=== PATIENT | female | born 1955 | race Two or more races ===

== ENCOUNTER → 2017-05-12 | Emergency (ER) | payer OTHER ==
[~2017-05-12] MED LIST: KETOROLAC TROMETHAMINE 60 MG/2 ML VIAL IM ONE; KETOROLAC TROMETHAMINE 60 MG/2 ML VIAL ONE
[2017-05-12 14:02] VITALS: BP 141/83; PULSE 63; TEMP 98.5; BMI 25.8
--- NOTE | 2017-05-12 14:30 | PDOC ---
History of Present Illness - General Chief Complaint: Blood Pressure Problem Stated Complaint: BLOOD PRESSURE Time Seen by Provider: 05/12/17 14:28 History Source: Patient Exam Limitations: No Limitations - History of Present Illness Initial Comments: CHIEF COMPLAINT: 61 y/o afebrile female with PMH HTN (was taken off meds 1 year ago by her doctor as they were no longer needed) c/o high blood pressure today. HISTORY OF PRESENT ILLNESS: The patient states she's been very stressed lately as her mom is in the hospital. She states for the past 5 days she's had a consistent pain in the back of her head on left side. She states this morning she took her BP at home and it was 160/105 so she came here. She denies fever, changes in vision/hearing, neck pain, n/v/d, cough, Cp, SOB, abd pain and all other symptoms. Patient has not taken anything for the pain in her head. Vital signs on arrival are within normal limits. REVIEW OF SYSTEMS: GENERAL/CONSTITUTIONAL: No fever/chills. No weakness. No weight change. +high BP at home today. HEAD, EYES, EARS, NOSE AND THROAT: No change in vision. No ear pain or discharge. No sore throat. CARDIOVASCULAR: No chest pain or shortness of breath. RESPIRATORY: No cough, wheezing, or hemoptysis. GASTROINTESTINAL: No abd pain, nausea, vomiting, diarrhea. GENITOURINARY: No dysuria, frequency, or change in urination. MUSCULOSKELETAL: No joint or muscle swelling or pain. No neck or back pain. SKIN: No rash or easy bruising. NEUROLOGIC: +left posterior head pain. No vertigo, loss of consciousness, or loss of sensation. PHYSICAL EXAM: GENERAL: The patient is awake, alert, and fully oriented, in no acute distress. She is well appearing, ambulatory and pleasant HEAD: Normal with no signs of trauma. Reproducible pain with palpation of left posterior scalp. ENT: Pupils equal, round and reactive to light, extraocular movements intact, sclera anicteric, conjunctiva clear. Neck supple. LUNGS: Clear to auscultation bilaterally. Normal excursion. No respiratory distress or use of accessory muscles. CV: RRR, S1/S2, no MRG. Cap refill < 2 sec. ABDOMEN: Soft, non-distended, non-tender even to deep palpation, no hepatomegaly or splenomegaly, no masses. EXTREMITIES: Normal range of motion, no edema. NEUROLOGICAL: Normal speech, normal gait. CN II-XII grossly intact. SKIN: Warm, dry, normal turgor, no rashes or lesions noted. Past History - Past Medical History Allergies/Adverse Reactions: Allergies Allergy/AdvReac Type Severity Reaction Status Date / Time No Known Allergies Allergy Verified 05/12/17 13:59 Home Medications: Ambulatory Orders Calcium Carbonate/Vitamin D3 [Calcium 600 + D3 Softgel] 1 each PO BID 05/12/17 Vitamin A 50,000 unit PO WEEKLY 05/12/17 - Suicide/Smoking/Psychosocial Hx Smoking History: Never smoked *Physical Exam - Vital Signs Last Vital Signs Temp Pulse Resp BP Pulse Ox 98.5 F 63 19 141/83 100 05/12/17 13:59 05/12/17 13:59 05/12/17 13:59 05/12/17 13:59 05/12/17 13:59 Medical Decision Making - Medical Decision Making A/P: 61 y/o female with 5 days of musculoskeletal head pain that most likely caused her blood pressure to be elevated this morning. Patient's BP was normal in the ER. Plan is as follows: 1. IM toradol Will discharge to home with instructions to take NSAIDs for pain with food if needed and return to the ER with any worsening or concerning symptoms. The patient verbalizes understanding of all instructions, has no further questions and is awaiting discharge. *DC/Admit/Observation/Transfer Diagnosis at time of Disposition: Musculoskeletal pain - Discharge Dispostion Disposition: HOME Condition at time of disposition: Good - Referrals - Patient Instructions Printed Discharge Instructions: DI for Musculoskeletal Pain Additional Instructions: Discharge Instructions: -Take 600mg of Ibuprofen every 6 hours with food for pain/headache. -Return to the ER with any worsening or concerning symptoms. Instrucciones de descarga: [place] 600 mg de ibuprofeno cada 6 horas con alimentos para el dolor / dolor de jennifer. -Volver a la genevieve de emergencias con cualquier empeoramiento o sntomas. Print Language: MACEDONIAN - Post Discharge Activity
== END | disposition home or self-care (01) ==
LOC: JER 13:07
PROC: 3E0233Z Introduction of Anti-inflammatory into Muscle, Percutaneous Approach (ICD-10-PCS; principal; 2017-05-12)
DX: I10 Essential (primary) hypertension (principal); R51 Headache
CPT/HCPCS: 99282-25

== ENCOUNTER 2024-01-26 04:43 | Day surgery (SDC) | payer MEDICARE, OTHER ==
[2024-01-24 11:09] VITALS: BMI 26.9
[2024-01-26 11:46] VITALS: TEMP 97.9
[2024-01-26 12:38] VITALS: PULSE 55; RESP 18
[2024-01-26 12:40] VITALS: BP 118/71
== END 2024-01-26 12:43 | disposition home or self-care (01) ==
LOC: JASU-ENDO 04:43
PROVIDERS: ATTEND Internal Medicine Gastroenterology
PROC: 0DJD8ZZ Inspection of Lower Intestinal Tract, Via Natural or Artificial Opening Endoscopic (ICD-10-PCS; principal; 2024-01-26 09:30)
DX: Z12.11 Encounter for screening for malignant neoplasm of colon (principal); K64.8 Other hemorrhoids